=== PATIENT | female | born 1980 | race Caucasian/White ===

== ENCOUNTER 2025-06-05 01:37 | Emergency (ER) | payer BC, SELFPAY ==
[2025-06-05] VITALS (52 sets, daily range): BP systolic 141–184; BP diastolic 103–130; PULSE 92–128; TEMP 36.4; O2SAT 90–98; BMI 64.6
[2025-06-05] MEDS: 0.9 % SODIUM CHLORIDE 1,000 ML 1000 ML IV (01:50)
[2025-06-05 02:15] LABS: Hematocrit 37.6 % (36.0-48.0); Hemoglobin 11.0 g/dL (12.0-16.0); Immature Granulocytes Abs Auto 0.02 10^3/uL (0.00-0.03); Immature Granulocytes Pct Auto 0.3 % (0.0-0.5); Lymphocytes Absolute Auto 2.2 10^3/uL (1.2-3.8); Mean Corpuscular HGB Conc 29.3 g/dL (29.9-35.2); Mean Corpuscular Hemoglobin 21.8 pg (26.7-34.0); Mean Corpuscular Volume 74.6 fL (81.0-99.0); Platelet Count 390 10^3/uL (150-450); Red Blood Count 5.04 10^6/uL (4.20-5.40); White Blood Count 7.7 10^3/uL (4.0-11.0)
--- NOTE | 2025-06-05 02:18 | ED_ITS ---
HPI HPI - General Adult General Chief complaint: Shortness of Breath/Dyspnea Stated complaint: sob Time Seen by Provider: 06/05/25 02:00 Source: patient Mode of arrival: walk-in Limitations: no limitations History of Present Illness HPI narrative: Patient is a 44 year old female presenting to the ED for multiple complaints. Essentially, the patient has been dealing with insomnia for the last two days. She states she has only had a couple hours of sleep over the last 48 hours. She states she has trouble falling asleep, despite using Benadryl, prescribed Zoloft, and melatonin today. She states that she has chronic anxiety, however this is unchanged from her baseline. Tonight, she was having hard time falling asleep. When she went to go sit in her recliner she started feeling nauseous, short of breath, and sweaty. She had 1 episode of vomiting while here in the ED. She denies any fevers or chills. She denied any chest pain. She denies any abdominal pain, vaginal bleeding, dysuria, hematuria. She states she has been having irregular menstrual cycles, may be going through early menopause. Her last menstrual cycle was 7 weeks ago. She states she is a history of Crohn's disease and hypertension, otherwise is healthy. Her only prescribed medication is Zoloft. Now that she is resting in the ED, she states her symptoms have resolved. Related Data Home Medications ?Medication ?Instructions ?Recorded ?Confirmed sertraline 50 mg tablet 50 mg PO Q24H 06/05/2506/05 Allergies Allergy/AdvReac Type Severity Reaction Status Date / Time No Known Drug Allergies Allergy Verified 06/05/25 01:48 Review of Systems ROS Status of ROS 10 or more systems reviewed and unremark able except as noted in history and below PFSH PFSH Social History Little interest or pleasure in doing things: not at all Feeling down, depressed, or hopeless: not at all Exam Narrative Exam Narrative: CONSTITUTIONAL: Well-appearing, answering questions and following commands appropriately SKIN: Was warm and dry. EYES: Sclerae white. No conjunctival pallor. EARS, NOSE, THROAT: Moist oral mucosa. RESPIRATORY: Clear to auscultation bilaterally, no wheezes, crackles, or stridor, no use of accessory muscles CARDIOVASCULAR: Tachycardic rate and regular rhythm. There is no S3, S4, murmur, rub. GASTROINTESTINAL: Abdomen is soft, nontender, and nondistended. MUSCULOSKELETAL: No peripheral edema. NEUROLOGIC: Patient is awake and alert. Facies were symmetrical. Constitutional Vital Signs, click to edit/add: Last Vital Signs Temp 97.5 F L 06/05/25 01:40 Pulse 111 H 06/05/25 05:48 Resp 20 06/05/25 05:48 BP 162/128 H 06/05/25 05:48 Pulse Ox 96 06/05/25 04:51 O2 Del Method Room Air 06/05/25 02:00 Course Vital Signs Vital signs: Vital Signs Temperature 97.5 F L 06/05/25 01:40 Pulse Rate 127 H 06/05/25 01:40 Respiratory Rate 22 H 06/05/25 01:40 Blood Pressure 163/117 H 06/05/25 01:40 Pulse Oximetry 95 06/05/25 01:40 Oxygen Delivery Method Room Air 06/05/25 01:40 Temperature 97.5 F L 06/05/25 01:40 Pulse Rate 111 H 06/05/25 05:48 Respiratory Rate 20 06/05/25 05:48 Blood Pressure 162/128 H 06/05/25 05:48 Pulse Oximetry 96 06/05/25 04:51 Oxygen Delivery Method Room Air 06/05/25 02:00 Medical Decision Making MDM Narrative Medical decision making narrative: Patient is a 44-year-old female presenting to the emergency department for 2-day history of insomnia, and an episode of nausea, SOB, and vomiting that began prior to her visit. Her vital signs on arrival are significant for tachycardia and hypertension, otherwise within normal limits. She is afebrile and hemodynamically stable. She saturate 95% on room air, in no respiratory distress, with clear breath sounds bilaterally. Overall, patient has a normal physical examination. Differential diagnosis includes gastroenteritis, ACS, PE, PNA, CHF, early menopause, insomnia, or other electrolyte/metabolic derangement. IV is established and laboratory studies were obtained. CT thorax was ordered. She was given 1 L bolus of normal saline and IV Zofran for symptomatic treatment. 12 Lead EKG: Normal sinus rhythm at a rate of 99 bpm. Left axis deviation and large QRS complexes likely related to LVH. No ST segment elevations. There are subtle ST depressions mostly in the inferior leads. QS complexes in the anterior leads, possibly secondary to prior infarct. QRS, [place], and QTc interval within normal limits. Poor R wave progression. No prior EKG for comparison. Final impression: Normal sinus rhythm with ST depression and LVH, concerning for ischemia. No evidence of STEMI. Laboratory studies were significant for an elevated initial and repeat troponin of 78 and 75 respectively. Her BNP is elevated to 2603. No other significant electrolyte or metabolic derangement. She is mildly anemic. No leukocytosis. test negative. No transaminitis or hyperbilirubinemia. No evidence of acute kidney injury. CT angiogram independently reviewed and interpreted by myself and radiology demonstrated mild enlarged heart size. There are small bilateral pleural effusions with significant interstitial edema in the lungs suggestive of underlying CHF. No evidence of PE. Patient's presentation is likely consistent with new onset congestive heart failure. This may be secondary to chronic uncontrolled hypertension and obesity. However, underlying ischemic component cannot be ruled out. I do believe she warrants admission to the hospital for cardiology evaluation. Patient was given 325 mg of chewed aspirin and 20 mg IV Lasix for diuresis. I discussed the patient with Dr. Yusuf who recommended transfer to [facility]. I discussed the patient with hospitalist at [facility], Dr. Fu, who accepted the transfer. FINAL IMPRESSION: #Acute new onset congestive heart failure DISPOSITION: Transferred to [facility] CONDITION: Good Lab Data Lab results reviewed: Yes I reviewed the patient's lab results Labs: Lab Results 06/05/25 06/05/25 Range/Units 01:53 03:00 WBC 7.7 (4.0-11.0) 10^3/uL RBC 5.04 (4.20-5.40) 10^6/uL Hgb 11.0 L (12.0-16.0) g/dL Hct 37.6 (36.0-48.0) % MCV 74.6 L (81.0-99.0) fL MCH 21.8 L (26.7-34.0) pg MCHC 29.3 L (29.9-35.2) g/dL RDW 17.7 H (11.0-15.0) % Plt Count 390 (150-450) 10^3/uL MPV 10.0 (9.5-13.5) fL Neut % (Auto) 61.7 (43.0-75.0) % Lymph % (Auto) 28.7 (20.5-60.0) % [place] % (Auto) 6.0 (1.7-12.0) % Eos % (Auto) 2.5 (0.9-7.0) % Baso % (Auto) 0.8 (0.2-2.0) % Neut # (Auto) 4.7 (1.4-6.5) 10^3/uL Lymph # (Auto) 2.2 (1.2-3.8) 10^3/uL [place] # (Auto) 0.5 (0.3-0.8) 10^3/uL Eos # (Auto) 0.2 (0.0-0.7) 10^3/uL Baso # (Auto) 0.1 (0.0-0.1) 10^3/uL Abs Immat Gran (auto) 0.02 (0.00-0.03) 10^3/uL Imm/Tot Granulo (auto) 0.3 (0.0-0.5) % Sodium 136 (136-145) mmol/L Potassium 3.8 (3.5-5.1) mmol/L Chloride 103 (98-107) mmol/L Carbon Dioxide 25.4 (21.0-32.0) mmol/L Anion Gap 11.4 BUN 20.0 H (7.0-18.0) mg/dL Creatinine 0.98 (0.55-1.02) mg/dL Est GFR ( Amer) >60 (>=60 mL/min/1.73m^2) Est GFR (Non-Af Amer) >60 (>=60 mL/min/1.73m^2) BUN/Creatinine Ratio 20.4 Glucose 132 H (74-106) mg/dL Estimat Average Glucose 120 mg/dL Hemoglobin A1c 5.8 (4.5-6.2) % Calcium 9.7 (8.5-10.1) mg/dL Total Bilirubin 0.5 (0.2-1.0) mg/dL AST 18 (15-37) U/L ALT 23 (14-59) U/L Alkaline Phosphatase 79 (46-116) U/L Troponin I High Sens 78.5 H* 75.2 H* (4.0-51.3) pg/mL NT-Pro-B Natriuret Pep 2603.0 H* (<=450.0) pg/mL Total Protein 8.0 (6.4-8.2) g/dL Albumin 3.3 L (3.4-5.0) g/dL Globulin 4.7 g/dL Albumin/Globulin Ratio 0.7 Serum HCG, Qual Negative (NEGATIVE) Imaging Data CT scan - chest: Attestation: I personally reviewed and interpreted this imaging study as follows: ECG Data Attestation: I personally reviewed and interpreted this ECG as follows: Discharge Plan Discharge Chief Complaint: Shortness of Breath/Dyspnea Clinical Impression: New onset of congestive heart failure Patient Disposition: [facility] Time of Disposition Decision: 04:31 Discharge Location: [facility] Condition: Good Mode of Transportation: EMS
[2025-06-05 02:29] LABS: Alanine Aminotransferase 23 U/L (14-59); Albumin Globulin Ratio 0.7; Albumin Level 3.3 g/dL (3.4-5.0); Alkaline Phosphatase 79 U/L (46-116); Anion Gap 11.4; Aspartate Amino Transferase 18 U/L (15-37); Blood Urea Nitrogen 20.0 mg/dL (7.0-18.0); Calcium 9.7 mg/dL (8.5-10.1); Carbon Dioxide 25.4 mmol/L (21.0-32.0); Chloride 103 mmol/L (98-107); Estimated GFR (African America >60 (>=60 mL/min/1.73m^2); Estimated GFR (Non-African Ame >60 (>=60 mL/min/1.73m^2); Globulin 4.7 g/dL; Glucose 132 mg/dL (74-106); Potassium 3.8 mmol/L (3.5-5.1); Sodium 136 mmol/L (136-145); Total Protein 8.0 g/dL (6.4-8.2)
--- OUTSIDE RECORDS SUMMARY | 2025-06-05 02:52 | XMS_ITS | Clinical Summary ---
Author Organization [facility] Address [address] [place] [address] Care Team Providers Care [facility] Product Specialist Name Role Phone Unavailable Primary Care Provider Unavailabl e Social History Tobacco UseTypesPacks/DayYears UsedDateSmoking Tobacco: Never Assessed CommentsUnknownSex and Gender InformationValueDate RecordedSex Assigned at Not on fileLegal IorMggujv36/15/2023 6:57 PM EDTGender IdentityNot on fileSexual OrientationNot on file Last Filed Vital Signs Vital SignReadingTime TakenCommentsBlood Pressure--Pulse--Temperature-- Respiratory Rate--Oxygen Saturation--Inhaled Oxygen Concentration--Rblyyr912 kg (350 lb)03/17/2021 12:00 PM LWNEwkqyc314.6 cm (5' 6 )03/17/2021 12:00 PM EDTBody Mass Index56.49003/17/2021 12:00 PM EDT Plan of Treatment Not on file
[2025-06-05 03:34] LABS: NT Pro B Type Natriuretic Pept 2603.0 pg/mL (<=450.0)
[2025-06-05] MEDS: ASPIRIN 325 MG TABLET PO (03:45)
[2025-06-05] MEDS: FUROSEMIDE 40 MG/4 ML VIAL 20 MG IVP (04:16)
--- NOTE | 2025-06-05 08:28 | ECG_ITS ---
[facility] Test Date: 2025-06-05 Pat Name: JACINDA SHAFFER Department: Room: - Gender: Female [employer]: : 1980 Requested By: [id number] Order Number: [id number] Reading MD: SUNI BOWMAN M.D. Measurements Intervals [place] Rate: 99 P: 83 MT: 156 QRS: -11 QRSD: 122 T: 150 QT: 376 QTc: 432 Interpretive Statements 1100 Sinus rhythm NONSPECIFIC INTRAVENTRICULAR CONDUCTION DELAY 3114 Cannot rule out anterior myocardial infarction, age undetermined 5234 Left ventricular hypertrophy with repolarization abnormality 9150 abnormal ECG No previous ECG available for comparison Electronically Signed On 06-05-2025 8:52:58 EST by SUNI BOWMAN M.D.
== END 2025-06-05 09:17 | disposition short-term general hospital (02) ==
PROVIDERS: Emergency Provider Student in an Organized Health Care Education/Training Program; PCP Family Medicine
DX: I11.0 Hypertensive heart disease with heart failure (principal); I50.9 Heart failure, unspecified; K50.90 Crohn's disease, unspecified, without complications
CPT/HCPCS: 36415; 71275; 80053; 83036; 83880; 84484; 84703; 85025; 93005; 96361; 96374; 96375; 99285; J1938; J2405; Q9967